=== PATIENT | female | born 1945 | race Caucasian/White ===

== ENCOUNTER 2017-01-05 17:15 | Emergency (ER) | payer MEDICARE, OTHER ==
[~2017-01-05] VITALS: Ht 162.6 cm; Wt 74.8 kg
[~2017-01-05 17:15] MED LIST: BUSP5TAB PO; DOCU-106 PO; GABA600T2 PO; NAPR375T5 PO; OMEG1CAP55 PO; QUET25TA PO; TRAZ150T75 PO
[2017-01-05 18:02] LABS: EOSINOPHILS # (AUTO) 0.3 /CMM (0.0-0.7); LYMPHOCYTES # (AUTO) 3.4 /CMM (0.8-4.8)
[2017-01-05 18:11] LABS: BASOPHILS # (AUTO) 0.1 /CMM (0.0-0.2); EOSINOPHILS % (AUTO) 4.7 % (0.0-6.0); HEMATOCRIT 33 % (33-45); HEMOGLOBIN 11.4 g/dL (11.5-14.8); LYMPHOCYTES % (AUTO) 58.7 % (20.0-44.0); MEAN CORPUSCULAR HEMOGLOBIN 30 PG (26.0-33.0); MEAN CORPUSCULAR HGB CONC 34 g/dl (31.0-36.0); MEAN CORPUSCULAR VOLUME 87 fL (82-100); MONOCYTES # (AUTO) 0.6 /CMM (0.1-1.30); MONOCYTES % (AUTO) 9.9 % (2.0-12.0); NEUTROPHILS # (AUTO) 1.5 /CMM (1.8-8.9); NEUTROPHILS % (AUTO) 25.7 % (43.0-81.0); PLATELET COUNT (AUTO) 140 /CMM (150-450); RDW COEFFICIENT OF VARIATION 12.3 (11.5-15.0); RED BLOOD CELL COUNT(AUTO) 3.83 MIL/uL (4.0-5.2); WHITE BLOOD COUNT (AUTO) 5.9 K/uL (4.3-11.0)
[2017-01-05 18:13] LABS: CALCIUM, SERUM 9.2 mg/dL (8.5-10.1); CARBON DIOXIDE 25 mmol/L (21-32); CHLORIDE 99 mmol/L (98-107); CREATININE 1.7 mg/dL (0.6-1.3); GLUCOSE 91 mg/dL (74-106); POTASSIUM 4.5 mmol/L (3.5-5.1); SODIUM SERUM 134 mmol/L (136-145); UREA NITROGEN, BLOOD 29 mg/dL (7-18)
[2017-01-05 18:15] LABS: INR 0.98 (0.87-1.13); PROTHROMBIN TIME 10.2 SECS (9.5-12.7)
[2017-01-05 18:20] LABS: TROPONIN I < 0.017 ng/mL (0.00-0.056)
[2017-01-05 18:25] LABS: LACTIC ACID 0.8 mmol/L (0.4-2.0)
--- NOTE | 2017-01-05 18:25 | NUR ---
[facility] AND CONGESTION. PLACED ON MONITOR VSS.
[2017-01-05 18:30] LABS: ALANINE AMINOTRANSFERASE 37 U/L (12-78); ALBUMIN 3.6 g/dL (3.4-5.0); ALKALINE PHOSPHATASE 57 U/L (46-116); ASPARTATE AMINOTRANSFERASE 44 U/L (15-37); BILIRUBIN,DIRECT 0.1 mg/dL (0.0-0.2); BILIRUBIN,TOTAL 0.2 mg/dL (0.2-1.0); TOTAL PROTEIN, SERUM 7.2 g/dL (6.4-8.2)
--- NOTE | 2017-01-05 19:45 | NUR ---
URINE SAMPLE COLLECTED SENT TO LAB
[2017-01-05 19:48] LABS: APPEARANCE,URINE Clear (CLEAR); BILIRUBIN,URINE Negative (NEGATIVE); BLOOD, URINE Trace-intact Ery/uL (NEGATIVE); COLOR,URINE Yellow (YELLOW); KETONES,URINE Negative (NEGATIVE); LEUKOCYTE ESTERASE ,URINE Negative (NEGATIVE); NITRITE, URINE Negative (NEGATIVE); PROTEIN,URINE Negative (NEGATIVE); UGLUCOSE Negative (NEGATIVE); UROBILINOGEN,URINE 0.2 EU/dL (0.2)
--- NOTE | 2017-01-05 20:12 | NUR ---
IV removed. Catheter intact and site benign. Pressure and 4x4 applied to site. No bleeding noted. Patient discharged to home in stable condition. Written and verbal after care instructions given. Patient verbalizes understanding of instruction. Prescription given to patient.
--- NOTE | 2017-01-05 20:16 | NUR ---
CALLED [facility] FOR TRANSPORTATION ETA [phone]
[2017-01-05 20:19] LABS: RBC,URINE 2-3/HPF /HPF (0-2); WBC,URINE 0-2 /HPF (0-3)
[2017-01-05 20:20] LABS: ADD URINE CULTURE NO; BACTERIA,URINE Rare /HPF (None Seen); SQUAMOUS EPITHELIAL CELL,UR Few /HPF (None Seen); URINE AMORPHOUS URATE Few /HPF (None Seen)
[2017-01-05 20:21] VITALS: BP 125/79
== END 2017-01-05 22:16 | disposition home or self-care (01) ==
LOC: ER 17:17
DX: J40 Bronchitis, not specified as acute or chronic (principal); J44.9 Chronic obstructive pulmonary disease, unspecified; I10 Essential (primary) hypertension; E86.0 Dehydration
CPT/HCPCS: 36415; 71010; 80048; 80076; 81001; 83605; 84484; 85025; 85730; 87040 ×2; 93005; 99285; A4606; 81000-TC; Z7610

== ENCOUNTER 2019-03-15 16:18 | Emergency (ER) | payer MEDICARE, OTHER ==
[~2019-03-15] VITALS: Ht 167.6 cm; Wt 65.8 kg
[~2019-03-15 16:18] MED LIST changes: +GABA600T12 PO; -GABA600T2 PO
--- NOTE | 2019-03-15 16:25 | NUR ---
PT BIB PA FOR ABD PAIN AND CONSTIPATION; PT AAOX2-3, PT TO BED 5, PT ON MONITOR, VSS, NAD NOTED, PENDING MD ZALDIVAR
[2019-03-15 17:23] LABS: APPEARANCE,URINE Clear (CLEAR); BILIRUBIN,URINE Negative (NEGATIVE); BLOOD, URINE Trace-lysed Ery/uL (NEGATIVE); COLOR,URINE Yellow (YELLOW); KETONES,URINE Negative (NEGATIVE); LEUKOCYTE ESTERASE ,URINE Moderate (NEGATIVE); NITRITE, URINE Negative (NEGATIVE); PH,URINE 5.5 (5.0-8.0); PROTEIN,URINE 100 mg/dl (NEGATIVE); UGLUCOSE Negative (NEGATIVE); UROBILINOGEN,URINE 0.2 EU/dL (0.2)
[2019-03-15 17:41] LABS: BACTERIA,URINE 1+ /HPF (None Seen); SQUAMOUS EPITHELIAL CELL,UR Few /HPF (None Seen)
[2019-03-15 17:57] LABS: BASOPHILS # (AUTO) 0.1 /CMM (0.0-0.2); BASOPHILS % (AUTO) 0.7 % (0.0-2.0); EOSINOPHILS % (AUTO) 2.7 % (0.0-6.0); HEMATOCRIT 36 % (33-45); LYMPHOCYTES # (AUTO) 5.5 /CMM (0.8-4.8); LYMPHOCYTES % (AUTO) 49.3 % (20.0-44.0); MEAN CORPUSCULAR HGB CONC 33 g/dl (31.0-36.0); MEAN CORPUSCULAR VOLUME 90 fL (82-100); MONOCYTES # (AUTO) 0.7 /CMM (0.1-1.30); MONOCYTES % (AUTO) 5.9 % (2.0-12.0); NEUTROPHILS # (AUTO) 4.6 /CMM (1.8-8.9); NEUTROPHILS % (AUTO) 41.4 % (43.0-81.0); PLATELET COUNT (AUTO) 197 /CMM (150-450); RED BLOOD CELL COUNT(AUTO) 4.02 MIL/uL (4.0-5.2); WHITE BLOOD COUNT (AUTO) 11.2 K/uL (4.3-11.0)
[2019-03-15 18:06] LABS: CALCIUM, SERUM 9.4 mg/dL (8.5-10.1); CARBON DIOXIDE 22 mmol/L (21-32); CHLORIDE 106 mmol/L (98-107); CREATININE 1.6 mg/dL (0.6-1.3); GLUCOSE 107 mg/dL (74-106); POTASSIUM 4.4 mmol/L (3.5-5.1); SODIUM SERUM 138 mmol/L (136-145); UREA NITROGEN, BLOOD 45 mg/dL (7-18)
[2019-03-15 18:12] LABS: ALANINE AMINOTRANSFERASE 31 U/L (12-78); ALBUMIN 3.9 g/dL (3.4-5.0); ALKALINE PHOSPHATASE 71 U/L (46-116); ASPARTATE AMINOTRANSFERASE 25 U/L (15-37); BILIRUBIN,TOTAL 0.2 mg/dL (0.2-1.0); LIPASE 246 U/L (73-393); TOTAL PROTEIN, SERUM 7.7 g/dL (6.4-8.2)
[2019-03-15 18:33] VITALS: BP 121/60
--- NOTE | 2019-03-15 18:49 | NUR ---
[facility] [id number] TRIP # [id number]
--- NOTE | 2019-03-15 19:27 | NUR ---
PT D/C HOME TO [facility], PT LEFT VIA [facility] AMBULANCE. REPORT GIVEN TO STAFF. VSS, NAD NOTED.
== END 2019-03-15 19:29 ==
LOC: ER 16:18
DX: K59.00 Constipation, unspecified (principal); I10 Essential (primary) hypertension; J44.9 Chronic obstructive pulmonary disease, unspecified
CPT/HCPCS: 36415; 80048-TC; 80076-TC; 81000-TC; 83690-TC; 85025-TC; 87086-TC

== ENCOUNTER 2019-11-25 11:52 | Emergency (ER) | payer MEDICARE, OTHER ==
[~2019-11-25] VITALS: Ht 162.6 cm; Wt 74.8 kg
--- NOTE | 2019-11-25 12:12 | NUR ---
BIB AMBULANCE FROM [facility], SP [facility] YESTERDAY. PT A/OX4, ON ROOM AIR. NO RESPIRATORY DISTRESS NOTED. C/O NECK AND BUTTOCKS PAIN, 6/10. NO BRUISING NOR OPEN WOUND NOTED. DR OSHEA AT BEDSIDE. PT FOR PELVIS XRAY
[2019-11-25] MEDS ORDERED: OXYB5TAB29 PO (12:38)
[2019-11-25] MEDS ORDERED: BISA10SU11 RC (12:38)
[2019-11-25] MEDS ORDERED: LISI-603 PO (12:38)
[2019-11-25] MEDS ORDERED: CALC500T52 PO (12:38)
[2019-11-25] MEDS ORDERED: PREG100C PO (12:38)
[2019-11-25] MEDS ORDERED: ARIP20TA4 PO (12:38)
[2019-11-25] MEDS ORDERED: AMLO2.5T4 PO (12:38)
[2019-11-25] MEDS ORDERED: ACET1TAB12 PO (12:38)
[2019-11-25] MEDS ORDERED: CHLO25TA2 PO (12:38)
[2019-11-25] MEDS ORDERED: MIRT15TA7 PO (12:38)
[2019-11-25] MEDS ORDERED: ATOR10TA PO (12:38)
[2019-11-25] MEDS ORDERED: ACET-868 PO (12:38)
[2019-11-25] MEDS ORDERED: ERGO50CA PO (12:38)
[2019-11-25] MEDS ORDERED: FLUT16SP NS (12:38)
[2019-11-25] MEDS ORDERED: ALEN70TA6 PO (12:38)
[2019-11-25] MEDS ORDERED: PARO20TA7 PO (12:38)
[2019-11-25] MEDS ORDERED: TRAZ-257 PO (12:38)
[2019-11-25] MEDS ORDERED: GLEC1TAB PO (12:38)
[2019-11-25] MEDS ORDERED: POTA10TA10 PO (12:38)
[2019-11-25] MEDS ORDERED: VITA1TAB56 PO (12:38)
[2019-11-25] MEDS ORDERED: POLY17PO4 PO (12:38)
[2019-11-25] MEDS ORDERED: PROM118S4 PO (12:38)
[2019-11-25] MEDS ORDERED: NITR0.4T48 SL (12:38)
--- NOTE | 2019-11-25 13:34 | NUR ---
called [facility] for [facility] transport, 15 min eta, trip #[id number]
--- NOTE | 2019-11-25 14:05 | NUR ---
Patient discharged in stable condition. Written and verbal after care instructions given. Patient verbalizes understanding of instruction. transported back to [facility] via ambulance in stable condition.
[2019-11-25 14:12] VITALS: BP 162/87
== END 2019-11-25 14:14 | disposition home or self-care (01) ==
LOC: ER 11:58
DX: S30.0XXA Contusion of lower back and pelvis, initial encounter (principal); I10 Essential (primary) hypertension; J44.9 Chronic obstructive pulmonary disease, unspecified; Z79.899 Other long term (current) drug therapy; W01.0XXA Fall on same level from slipping, tripping and stumbling without subsequent striking against object, initial encounter; Y93.89 Activity, other specified; Y92.89 Other specified places as the place of occurrence of the external cause; Y99.8 Other external cause status
CPT/HCPCS: 72170-TC